=== PATIENT | male | born 1970 | race American Indian/Alaskan Native ===

== ENCOUNTER → 2020-06-17 21:15 | Emergency (ER) | payer MEDICARE | END | disposition left against medical advice (07) | LOC: ED 21:15 | DX: R07.89 Other chest pain (principal); Z53.21 Procedure and treatment not carried out due to patient leaving prior to being seen by health care provider ==

== ENCOUNTER 2020-06-19 04:28 | Emergency (ER) | payer SELFPAY ==
--- NOTE | 2020-06-19 05:15 | XRay Report ---
CHEST 1 VIEW INDICATION / CLINICAL INFORMATION: chest wall pain. COMPARISON: None available. FINDINGS: SUPPORT DEVICES: None. HEART / MEDIASTINUM: No significant abnormality. LUNGS / PLEURA: No significant pulmonary or pleural abnormality.. No pneumothorax. ADDITIONAL FINDINGS: No significant additional findings. IMPRESSION: 1. No acute findings. Signer Name: Wesly Jerome MD Signed: 06/19/2020 5:11 AM Workstation Name: [id number]
[2020-06-19 06:04] LABS: Alanine Aminotransferase 9 units/L (7-56); Albumin 4.1 g/dL (3.9-5); BUN/Creatinine Ratio 11; Blood Urea Nitrogen 9 mg/dL (9-20); Calcium 9.1 mg/dL (8.4-10.2); Hemolysis Index 18
[2020-06-19 06:11] LABS: Basophils % (Auto) 0.5 % (0.0-1.8); Eosinophils # (Auto) 0.6 K/mm3 (0.0-0.4); Eosinophils % (Auto) 9.5 % (0.0-4.3); Hematocrit 34.6 % (35.5-45.6); Hemoglobin 11.4 gm/dl (11.8-15.2); Lymphocytes # (Auto) 0.9 K/mm3 (1.2-5.4); Lymphocytes % (Auto) 15.4 % (13.4-35.0); Mean Corpuscular HGB Conc 33 % (32-34); Mean Corpuscular Volume 85 fl (84-94); Monocytes # (Auto) 0.5 K/mm3 (0.0-0.8); Monocytes % (Auto) 8.1 % (0.0-7.3); Platelet Count 217 K/mm3 (140-440); Red Blood Count 4.06 M/mm3 (3.65-5.03); Red Cell Distribution Width 15.1 % (13.2-15.2)
--- NOTE | 2020-06-19 07:15 | Emergency Department Report ---
ED Chest Pain HPI - General Chief Complaint: Chest Pain Stated Complaint: RT SIDE CHEST PAIN Time Seen by Provider: 06/19/20 06:14 Source: patient Mode of arrival: Stretcher Limitations: No Limitations - History of Present Illness Initial Comments: Patient is 49 years old male with history of HIV. Patient presented to the ER complaining of right sided chest pain for 1 week. Patient describes his chest pain is sharp with no radiation associated with some shortness of breath. Patient denied any fever or chills. No left-sided chest pain. MD Complaint: chest pain -: week(s) (1) Onset: during rest Pain Location: right chest Pain Radiation: none Quality: sharp Other Symptoms: cough - Related Data Previous Rx's Medication Instructions Recorded Last Taken Type Albuterol Mdi (or & Nicu Only) 2 puff IH QID PRN #1 inhalation 05/19/15 Unknown Rx [ProAir HFA Inhaler] Amoxicillin [Trimox CAP] 500 mg PO BID #20 capsule 05/19/15 Unknown Rx Fluticasone [Flonase] 1 spray NS QDAY #1 bottle 05/19/15 Unknown Rx guaiFENesin/CODEINE [Robitussin AC] 5 ml PO Q6HR #120 ml 05/19/15 Unknown Rx Clindamycin [Clindamycin CAP] 300 mg PO Q6H #40 capsule 01/28/16 Unknown Rx Ibuprofen [Motrin 800 MG tab] 800 mg PO Q8HR PRN #30 tablet 01/28/16 Unknown Rx traMADoL [Ultram 50 MG tab] 50 mg PO Q6HR PRN #20 tablet 01/28/16 Unknown Rx Allergies Allergy/AdvReac Type Severity Reaction Status Date / Time No Known Allergies Allergy Verified 01/28/16 20:09 Heart Score - HEART Score History: Slightly suspicious EKG: Non-specific Age: 45-65 Risk factors: No known risk factors Troponin: < normal limit HEART Score: 2 - Critical Actions Critical Actions: 0-3 pts:0.9-1.7%risk of adverse cardiac event.Candidate for discharge ED Review of Systems ROS: Stated complaint: RT SIDE CHEST PAIN Other details as noted in HPI Comment: All other systems reviewed and negative Constitutional: denies: chills, fever Respiratory: cough, shortness of breath. denies: SOB with exertion, SOB at rest, wheezing Cardiovascular: chest pain Gastrointestinal: denies: abdominal pain, nausea, vomiting Neurological: denies: headache, weakness ED Past Medical Hx - Past Medical History Previous Medical History?: Yes Hx Seizures: Yes Hx HIV: Yes (takes meds for it) Additional medical history: neuropathy - Surgical History Past Surgical History?: No - Social History Smoking Status: Current Every Day Smoker Substance Use Type: None - Medications Home Medications: Home Medications Medication Instructions Recorded Confirmed Last Taken Type Albuterol Mdi (or & Nicu Only) 2 puff IH QID PRN #1 inhalation 05/19/15 Unknown Rx [ProAir HFA Inhaler] Amoxicillin [Trimox CAP] 500 mg PO BID #20 capsule 05/19/15 Unknown Rx Fluticasone [Flonase] 1 spray NS QDAY #1 bottle 05/19/15 Unknown Rx guaiFENesin/CODEINE [Robitussin AC] 5 ml PO Q6HR #120 ml 05/19/15 Unknown Rx Clindamycin [Clindamycin CAP] 300 mg PO Q6H #40 capsule 01/28/16 Unknown Rx Ibuprofen [Motrin 800 MG tab] 800 mg PO Q8HR PRN #30 tablet 01/28/16 Unknown Rx traMADoL [Ultram 50 MG tab] 50 mg PO Q6HR PRN #20 tablet 01/28/16 Unknown Rx ED Physical Exam - General Limitations: No Limitations General appearance: alert, in no apparent distress - Head Head exam: Present: atraumatic, normocephalic, normal inspection - Eye Eye exam: Present: normal appearance - ENT ENT exam: Present: normal exam, normal orophraynx, mucous membranes moist - Neck Neck exam: Present: normal inspection, full ROM. Absent: tenderness, meningismus - Respiratory Respiratory exam: Present: normal lung sounds bilaterally. Absent: respiratory distress, wheezes, rales, rhonchi, chest wall tenderness, accessory muscle use, decreased breath sounds, prolonged expiratory - Cardiovascular Cardiovascular Exam: Present: regular rate, normal rhythm, normal heart sounds - GI/Abdominal GI/Abdominal exam: Present: soft, normal bowel sounds. Absent: distended, tenderness, guarding, rebound, rigid, organomegaly, mass, bruit, pulsatile mass - Extremities Exam Extremities exam: Present: normal inspection, full ROM, normal capillary refill. Absent: tenderness, pedal edema, joint swelling, calf tenderness - Back Exam Back exam: Present: normal inspection, full ROM. Absent: CVA tenderness (R), C VA tenderness (L) - Neurological Exam Neurological exam: Present: alert, oriented X3, CN II-XII intact, normal gait, reflexes normal. Absent: motor sensory deficit - Psychiatric Psychiatric exam: Present: normal mood - Skin Skin exam: Present: warm, intact, normal color ED Course Vital Signs 06/19/20 06/19/20 06/19/20 04:46 04:50 05:00 Temperature 98.0 F Pulse Rate 96 H 94 H 98 H Respiratory 29 H 24 14 Rate Blood Pressure 116/53 116/53 Blood Pressure 116/53 [Left] O2 Sat by Pulse 97 97 99 Oximetry 06/19/20 06/19/20 06/19/20 05:30 05:46 07:16 Temperature Pulse Rate 92 H 93 H 84 Respiratory 19 16 17 Rate Blood Pressure 113/66 99/69 Blood Pressure [Left] O2 Sat by Pulse 96 97 96 Oximetry 06/19/20 06/19/20 06/19/20 10:34 10:37 10:46 Temperature 98.0 F Pulse Rate 99 H Respiratory 20 Rate Blood Pressure 108/71 110/70 Blood Pressure 108/71 [Left] O2 Sat by Pulse 96 Oximetry 06/19/20 06/19/20 06/19/20 11:31 11:58 12:15 Temperature Pulse Rate 93 H Respiratory 19 19 Rate Blood Pressure 101/65 Blood Pressure 109/67 [Left] O2 Sat by Pulse 95 96 Oximetry ED Medical Decision Making - Lab Data Result diagrams: 06/19/20 05:16 06/19/20 05:16 - EKG Data -: EKG Interpreted by [place] EKG shows normal: sinus rhythm Rate: normal - EKG Data Interpretation: no acute changes - Radiology Data Radiology results: report reviewed - Medical Decision Making Patient is 49 years old male with history of HIV. Patient presented to the ER complaining of right sided chest pain for 1 week. Patient describes his chest pain is sharp with no radiation associated with some shortness of breath. Patient denied any fever or chills. No left-sided chest pain. EKG is unremarkable. Chest x-ray is negative for acute finding. Labs reviewed and is unremarkable except for elevated d-dimer however CTA of the chest is negative for pulmonary embolism. CT of the chest showed a 2.9 cm mass in the right lower lung versus diaphragm per radiologist report. Patient informed about his CT results and advised to follow-up with his primary doctor in the next 2 to 3 days and to return to the ER if he develop any new symptoms. Critical care attestation.: If time is entered above; I have spent that time in minutes in the direct care of this critically ill patient, excluding procedure time. ED Disposition Clinical Impression: Chest pain Disposition: DC-01 TO HOME OR SELFCARE Is pt being admited?: No Condition: Stable Instructions: Chest Pain (ED) Referrals: PRIMARY CARE, [Primary Care Provider] - 3-5 Days
[2020-06-19 09:37] LABS: INR 0.95 (0.87-1.13)
[2020-06-19 09:43] LABS: Partial Thromboplastin Time 29.7 Sec. (24.2-36.6)
[2020-06-19] MEDS ORDERED: ONDANSETRON 4 MG/2 ML INJ ONE (11:24)
[2020-06-19] MEDS ORDERED: MORPHINE 4 MG/1 ML INJ ONE (11:24)
[2020-06-19] MEDS ORDERED: ONDANSETRON 4 MG/2 ML INJ IV ONE (11:26)
[2020-06-19] MEDS ORDERED: MORPHINE 4 MG/1 ML INJ IV ONE (11:26)
--- NOTE | 2020-06-19 11:31 | Cat Scan Report ---
CT angio chest INDICATION / CLINICAL INFORMATION: CHEST PAIN WITH SOB. TECHNIQUE: Axial CT images were obtained after injection of 100 cc Omnipaque 350 IV contrast using CTA protocol. 3 plane MIP / 3D reconstructions were produced. All CT scans at this location are performed using CT dose reduction for ALARA by means of automated exposure control. COMPARISON: None available. FINDINGS: Following the administration of intravenous contrast, no filling defects are seen in the main pulmona ry arteries or their branches. A 7 mm nodule seen in the right upper lobe (image 192). Diffuse inters titial prominence is present. There is a 2.9 cm soft tissue density in the anterior portion of the ri ght lower lung and it is unclear as to whether this is related to the diaphragm. No enlarged mediasti nal or hilar lymph nodes are seen. No significant skeletal abnormality is identified. IMPRESSION: 1. No evidence of pulmonary embolus 2. 7 mm nodule in the right upper lobe 3. 2.9 cm soft tissue density in the anterior portion of the right lower lung which could be related to the diaphragm Signer Name: Bernardo VEE Signed: 06/19/2020 11:26 AM Workstation Name: [id number]
[2020-06-19 11:59] VITALS: BP 109/67
== END 2020-06-19 13:37 | disposition home or self-care (01) ==
LOC: ED 04:28
DX: R07.89 Other chest pain (principal); F17.200 Nicotine dependence, unspecified, uncomplicated; Z79.899 Other long term (current) drug therapy
CPT/HCPCS: 36415; 71045; 71275; 80053; 85025; 85379; 85610; 85730; 96374; 96375; 99284; J2270; J2405; Q9967